=== PATIENT | female | born 1965 | race Caucasian/White ===

== ENCOUNTER 2024-10-16 17:54 | Emergency (ER) | payer BC ==
[2024-10-16] MEDS: Acetaminophen/HYDROcodone 325-5 MG Tab PO ONE (21:47)
== END 2024-10-16 22:06 | disposition home or self-care (01) ==
LOC: JP.ED 17:54
DX: S22.32XA Fracture of one rib, left side, initial encounter for closed fracture (principal); Z88.2 Allergy status to sulfonamides; Z88.8 Allergy status to other drugs, medicaments and biological substances; Z79.899 Other long term (current) drug therapy; Z87.891 Personal history of nicotine dependence; W50.0XXA Accidental hit or strike by another person, initial encounter
CPT/HCPCS: 71100; 99283; A9270